=== PATIENT | male | born 1960 | race Caucasian/White ===

== ENCOUNTER 2023-07-19 20:28 | Emergency (ER) | payer SELFPAY ==
[~2023-07-19] VITALS: Ht 160 cm; Wt 74.8 kg
[2023-07-19 20:40] VITALS: BP 166/100; PULSE 90; RESP 18; TEMP 97.7; O2SAT 96
[2023-07-19 21:38] LABS: BASOPHILS # (AUTO) 0.1 K/uL (0.00-0.22); BASOPHILS % (AUTO) 0.9 % (0.0-2.0); EOSINOPHILS % (AUTO) 0.3 % (0.0-4.0); HEMATOCRIT 45.5 % (36-52); HEMOGLOBIN 14.7 g/dL (12.0-18.0); LYMPHOCYTES # (AUTO) 1.2 K/uL (2.0-11.5); LYMPHOCYTES % (AUTO) 9.5 % (20.5-51.1); MEAN CORPUSCULAR HEMOGLOBIN 27 pg (27-31); MEAN CORPUSCULAR HGB CONC 32 g/dL (33-37); MEAN CORPUSCULAR VOLUME 84.4 fL (80-94); MONOCYTES # (AUTO) 0.8 K/uL (0.8-1.0); NEUTROPHILS # (AUTO) 10.5 K/uL (1.8-7.7); NEUTROPHILS % (AUTO) 83.3 % (42.2-75.2); PLATELET COUNT (AUTO) 271 K/uL (140-450); RED BLOOD CELL COUNT(AUTO) 5.38 MIL/uL (4.20-6.10); RED CELL DISTRIBUTION WIDTH 16.5 % (11.6-13.7); WHITE BLOOD COUNT (AUTO) 12.6 K/uL (4.8-10.8)
[2023-07-19 21:55] LABS: CALCIUM 8.7 mg/dL (8.5-10.1); CARBON DIOXIDE 36.1 mmol/L (21-32); POTASSIUM 4.1 mmol/L (3.5-5.1); TOTAL BILIRUBIN 1.4 mg/dL (0.0-1.0); TOTAL PROTEIN, SERUM 7.1 g/dL (6.4-8.2)
[2023-07-19] MEDS ORDERED: ALUMINUM HYD/MAG/SIMETHICONE 30 ML UDC PO ONE (22:35)
[2023-07-19] MEDS ORDERED: FAMO-92 PO (22:35)
[2023-07-19] MEDS ORDERED: ONDANSETRON 4 MG ODT PO ONE (22:35)
[2023-07-19] MEDS ORDERED: ONDA-188 SL (22:35)
[2023-07-19] MEDS ORDERED: SUCR1TAB35 PO (22:35)
== END 2023-07-19 22:45 | disposition home or self-care (01) ==
LOC: MED 20:28
DX: A08.4 Viral intestinal infection, unspecified (principal); K29.70 Gastritis, unspecified, without bleeding; I10 Essential (primary) hypertension; Z79.899 Other long term (current) drug therapy
CPT/HCPCS: 36415; 80053; 83690; 85025; 99283; Q0162